=== PATIENT | male | born 1965 | race African-American/Black ===

== ENCOUNTER 2017-06-13 08:49 | Emergency (ER) | payer OTHER ==
[2017-06-13 09:18] LABS: #Basophils 0.1 thou/uL (0.0-0.2); #Eosinphils 0.4 thou/uL (0.0-0.7); #Lymphocytes 2.3 thou/uL (1.20-3.40); #Monocytes 0.7 thou/uL (0.11-0.59); #Neutrophils 4.3 thou/uL (1.40-6.50); %Lymphocytes 29.2 % (21.0-51.0); %Monocytes 8.6 % (0.0-10.0); %Neutrophils 56.3 % (42.0-75.0); Hemoglobin 13.6 g/dL (14.0-18.0); Mean Corpuscular HGB CONC 33.2 g/dL (32.0-36.0); Mean Corpuscular Hemoglobin 28.6 pg (27.0-31.0); Mean Corpuscular Volume 85.9 fl (80.0-94.0); Mean Platelet Volume 6.4 fL (7.4-10.4); Platelet Count 394 thou/uL (130-400); RBC Distribution Width 12.6 % (11.5-14.5); Red Blood Cell (RBC) Count 4.76 mill/uL (4.70-6.10); White Blood Cell (WBC) Count 7.7 thou/uL (4.8-10.8)
--- NOTE | 2017-06-13 09:27 | RAD ---
FRONTAL RADIOGRAPH CHEST: Date: 06-13-17 Comparison: None. History: Chest pain. FINDINGS: No pneumothorax or pleural fluid. No focal consolidation or alveolar edema. Heart and mediastinal con tours unremarkable. IMPRESSION: No acute findings. POS: [facility]
[2017-06-13 09:45] LABS: ALT (SGPT) 24 U/L (8-55); AST (SGOT) 26 U/L (5-34); Albumin 4.5 g/dL (3.5-5.0); Alkaline Phosphatase 66 U/L (40-150); Anion Gap 11 mmol/L (10-20); BUN (Urea Nitrogen) 13 mg/dL (8.4-25.7); Bilirubin, Total 0.3 mg/dL (0.2-1.2); CK (CPK) 742 U/L (30-200); Calc. Creatinine Clearance 0 mL/min (70-130); Calcium 9.6 mg/dL (7.8-10.44); Carbon Dioxide 27 mmol/L (22-29); Chloride 105 mmol/L (98-107); Estimated GFR-MDRD 80; Globulin 3.1 g/dL (2.4-3.5); Glucose 104 mg/dL (70-105); Lipase 22 U/L (8-78); Potassium 3.6 mmol/L (3.5-5.1); Protein, Total 7.6 g/dL (6.0-8.3); Sodium 139 mmol/L (136-145)
[2017-06-13 09:46] LABS: Troponin I 0.028 ng/mL (< 0.028)
[2017-06-13 09:50] LABS: CKMB 9.5 ng/mL (0-6.6)
[2017-06-13 13:07] LABS: Troponin I 0.026 ng/mL (< 0.028)
--- NOTE | 2017-06-17 13:47 | EKG ---
Test Reason : Blood Pressure : / mmHG Vent. Rate : 067 BPM Atrial Rate : 067 BPM P-R Int : 152 ms QRS Dur : 088 ms QT Int : 412 ms P-R-T Axes : 053 036 022 degrees QTc Int : 435 ms Normal sinus rhythm Normal ECG Confirmed by JESSICA MUNSON ([id number]), order editor BHARATHI ERAZO ([id number]) on 06/17/2017 1:47:13 PM Referred By: Confirmed By:JESSICA MUNSON
== END 2017-06-13 13:24 | disposition home or self-care (01) ==
LOC: ERS 08:49
DX: R07.2 Precordial pain (principal); I10 Essential (primary) hypertension; Z79.899 Other long term (current) drug therapy
CPT/HCPCS: 36415; 71045; 80053; 82553; 83690; 83880; 84484; 85025; 85379; 93005; 96361; 96374; J2270